=== PATIENT | male | born 1945 ===

== ENCOUNTER 2024-06-06 14:48 | Inpatient (IN) | payer OTHER ==
[~2024-06-06] VITALS: Ht 170.2 cm; Wt 75.2 kg
[~2024-06-06 14:48] MED LIST: ACET650S24 PR; ALLO-97 PO; AMLO-258 PO; ASPI-1450 PO; ATOR40TA28 PO; CALC0.253 PO; CARV25 PO; CLON0.1T2 PO; DOCU-385 PO; FLUO-342 PO; FOLI0.8T21 PO; FURO80TA4 PO; GENT30CR TP; HEPA500018 SQ; INSLAN SQ; INSU100V SQ; LEVE500T8 PO; LOSA-381 PO; LOSA-382 PO; NPH,100V SQ; OMEP20 PO; ONDA-104 PO; SENN-376 PO; SEVE0.8P7 PO; [UNRECOGNIZED DRUG - CODE] TP
[2024-06-06] MEDS ORDERED: 0.9% SODIUM CHLORIDE 10 ML SYRINGE IVP PRN (15:00)
[2024-06-06] MEDS: CefTRIAXone 1 GM/DEXTROSE 50 ML IV ONE (15:15)
[2024-06-06] MEDS: SODIUM CHLORIDE 0.9% 2,250 ML IV ONE (15:15)
[2024-06-06 15:17] LABS: BASOPHILS % (AUTO) 0.2 % (0.0-2.0); EOSINOPHILS % (AUTO) 0.3 % (1.0-6.0); HEMATOCRIT 34.5 % (41-53); HEMOGLOBIN 11.1 g/dL (13.5-17.5); LYMPHOCYTES # (AUTO) 2.2 K/uL (1.0-4.8); LYMPHOCYTES % (AUTO) 9.9 % (22.0-44.0); MEAN CORPUSCULAR HEMOGLOBIN 34.7 pg (26.0-34.0); MEAN CORPUSCULAR HGB CONC 32.3 G/dL (31.0-37.0); MEAN CORPUSCULAR VOLUME 108 fL (80-100); MONOCYTES # (AUTO) 1.6 K/uL (0.1-1.0); MONOCYTES % (AUTO) 7.3 % (2.0-9.0); NEUTROPHILS % (AUTO) 82.3 % (40.0-70.0); PLATELET COUNT (AUTO) 355 K/uL (150-450); RED BLOOD CELL COUNT(AUTO) 3.21 MIL/uL (4.50-5.90); RED CELL DISTRIBUTION WIDTH 16.7 % (11.5-14.5); WHITE BLOOD COUNT (AUTO) 21.9 K/uL (4.5-11.0)
[2024-06-06 15:32] LABS: RBC MORPHOLOGY COMMENT ABNORMAL RBC MORPH
[2024-06-06 15:37] LABS: TROPONIN I-HIGH SENSITIVITY 94 ng/L (<76)
[2024-06-06 15:38] LABS: B-TYPE NATRIURETIC PEPTIDE 277 pg/mL (0-100); LACTIC ACID 3.9 mmol/L (0.4-2.0)
[2024-06-06 15:47] LABS: PROTHROMBIN TIME 10.4 SEC (9.4-11.6)
[2024-06-06 16:25] LABS: ANION GAP 11 mmol/L (8-16); CALCIUM, TOTAL 8.9 mg/dL (8.8-10.5); CARBON DIOXIDE 28 mmol/L (22-29); CHLORIDE 95 mmol/L (98-107); CREATININE 5.38 mg/dL (0.60-1.30); GLOMERULAR FILTR. RATE CALC 10 mL/min (>60); GLUCOSE,RANDOM 182 mg/dL (70-110); POTASSIUM 3.4 mmol/L (3.5-5.1); SODIUM SERUM 134 mmol/L (136-145); UREA NITROGEN, BLOOD 21 mg/dL (7-18)
[2024-06-06 16:29] LABS: ALANINE AMINOTRANSFERASE 7 U/L (12-78); ALBUMIN 1.5 g/dL (3.4-5.0); ALKALINE PHOSPHATASE 210 U/L (46-116); ASPARTATE AMINOTRANSFERASE 18 U/L (15-37); BILIRUBIN,TOTAL 0.6 mg/dL (0.1-1.0); TOTAL PROTEIN, SERUM 5.5 g/dL (6.4-8.2)
[2024-06-06 18:52] LABS: COVID AG,FIA SOURCE NASAL SWAB
[2024-06-06 19:13] LABS: SARS-COV2 (COVID) ANTIGEN,FIA Negative (Negative)
[2024-06-06 19:14] LABS: SPECIMENTYPE,BODY FLUID ASCITES
[2024-06-06] MEDS ORDERED: ACETAMINOPHEN 500 MG TABLET PO ONE (19:30)
[2024-06-06 19:34] LABS: APPEARANCE,URINE TURBID (CLEAR); BILIRUBIN,URINE NEGATIVE (NEGATIVE); COLOR,URINE YELLOW (YELLOW); GLUCOSE, URINE (UA) 300-500 mg/dL (NEGATIVE); KETONES,URINE NEGATIVE (NEGATIVE); LEUKOCYTE ESTERASE ,URINE LARGE (NEGATIVE); NITRATE,URINE NEGATIVE (NEGATIVE); OCCULT BLOOD,URINE LARGE (NEGATIVE); PROTEIN,URINE 300-600,SEE CONFIRM mg/dL (NEGATIVE); SPECIFIC GRAVITIY, URINE 1.045 (1.003-1.030); UROBILINOGEN,URINE <=1.0 mg/dL (<=1.0)
[2024-06-06] MEDS: ACETAMINOPHEN 650 MG RECTAL SUPPOSITORY PR ONE (19:54)
[2024-06-06 19:55] LABS: SULFOSALICYLIC ACID,URINE 1+ (Negative)
[2024-06-06] MEDS: IMIPENEM/CILASTATIN SODIUM 1,000 MG in SODIUM CHLORIDE 0.9% 250 ML IV ONE (19:55)
[2024-06-06 19:59] LABS: BACTERIA,URINE Moderate /HPF (None Seen); RBC,URINE 26-50 /HPF (0-2); SQUAMOUS EPITHELIAL CELL,UR Few /LPF (None Seen)
[2024-06-06 20:12] LABS: TROPONIN I-HIGH SENSITIVITY 101 ng/L (<76)
[2024-06-06] MEDS ORDERED: HYDROCODONE/ACETAMINOPHEN 5-325 MG TABLET PO PRN (21:00)
[2024-06-06] MEDS ORDERED: ACETAMINOPHEN 325 MG TABLET PO PRN (21:00)
[2024-06-06] MEDS ORDERED: MORPHINE SULFATE 2 MG/ML SYRINGE IVP PRN (21:00)
[2024-06-06] MEDS ORDERED: ZOLPIDEM TARTRATE 5 MG TABLET PO PRN (21:00)
[2024-06-06] MEDS: DOCUSATE SODIUM 100 MG CAPSULE PO SCH (21:00)
[2024-06-06] MEDS ORDERED: BISACODYL 10 MG RECTAL RECTAL SUPPOSITORY PR PRN (21:00)
[2024-06-06] MEDS ORDERED: MAGNESIUM HYDROXIDE SUSPENSION 30 ML UDCUP PO PRN (21:00)
[2024-06-06 21:35] LABS: APPEARANCE,SPUN,BODY FLUID CLEAR (CLEAR); APPEARANCE,UNSPUN,BODY FLUID SLIGHTLY CLOUDY (CLEAR); COLOR,BODY FLUID COLORLESS (LT YELLOW); TOTAL VOLUME,BODY FLUID 80 mL
[2024-06-06 22:05] LABS: LYMPHOCYTES,BODY FLUID 44 %; MONOCYTES,BODY FLUID 22 %; NEUTROPHILS,BODY FLUID 34 %; WBC, BODY FLUID 3 /cu. mm.
[2024-06-06] MEDS: VANCOMYCIN 1.25 GM/WATER(PEG) 250 ML IV ONE (22:52)
[2024-06-06] MEDS: HEPARIN SODIUM,PORCINE 5,000 UNITS/ML VIAL SQ SCH (23:49)
[2024-06-07] VITALS (7 sets, daily range): BP systolic 112–145; BP diastolic 68–81; PULSE 89–105; RESP 18; TEMP 98.1–99; O2SAT 94–98
[2024-06-07] MEDS ORDERED: VANCOMYCIN 1GM/WATER(PEG/NADA) 200 ML IV PRN (04:00)
[2024-06-07 06:14] LABS: BASOPHILS % (AUTO) 0.1 % (0.0-2.0); EOSINOPHILS % (AUTO) 0.2 % (1.0-6.0); HEMATOCRIT 34.3 % (41-53); HEMOGLOBIN 11.1 g/dL (13.5-17.5); LYMPHOCYTES # (AUTO) 1.8 K/uL (1.0-4.8); LYMPHOCYTES % (AUTO) 7.9 % (22.0-44.0); MEAN CORPUSCULAR HGB CONC 32.4 G/dL (31.0-37.0); MEAN CORPUSCULAR VOLUME 108 fL (80-100); MONOCYTES # (AUTO) 2.2 K/uL (0.1-1.0); MONOCYTES % (AUTO) 9.7 % (2.0-9.0); NEUTROPHILS # (AUTO) 18.7 K/uL (1.8-7.7); NEUTROPHILS % (AUTO) 82.1 % (40.0-70.0); PLATELET COUNT (AUTO) 351 K/uL (150-450); RED BLOOD CELL COUNT(AUTO) 3.18 MIL/uL (4.50-5.90); RED CELL DISTRIBUTION WIDTH 17.1 % (11.5-14.5); WHITE BLOOD COUNT (AUTO) 22.8 K/uL (4.5-11.0)
[2024-06-07 06:25] LABS: CALCIUM, TOTAL 8.7 mg/dL (8.8-10.5); CREATININE 5.14 mg/dL (0.60-1.30); POTASSIUM 3.1 mmol/L (3.5-5.1)
[2024-06-07] MEDS: PANTOPRAZOLE SODIUM 40 MG DR TABLET PO SCH (08:40)
[2024-06-07] MEDS: POTASSIUM CHL 10 MEQ/WATER 50 ML IV ONE ×2 (09:11→21:25)
[2024-06-07 12:52] LABS: C.DIFF GDH ANTIGEN, Stool Positive (Negative)
[2024-06-07 12:53] LABS: C.DIFF TOXINS A&B, Stool Positive (Negative)
[2024-06-07] MEDS: MetroNIDAZOLE 500 MG/NACL 100 ML IV SCH (14:34)
[2024-06-07 18:08] LABS: CALCIUM, TOTAL 8.9 mg/dL (8.8-10.5); CREATININE 5.74 mg/dL (0.60-1.30); MAGNESIUM 1.5 mg/dL (1.80-2.40); PHOSPHORUS 2.8 mg/dL (2.5-4.9); POTASSIUM 3.1 mmol/L (3.5-5.1)
[2024-06-07] MEDS: VANCOMYCIN HCL 125 MG/2.5 ML SOLUTION ORAL.SYG PO SCH (21:00)
[2024-06-07] MEDS: CARVEDILOL 3.125 MG TABLET PO SCH (21:00)
[2024-06-07] MEDS ORDERED: SODIUM CHLORIDE 0.9% 500 ML IV ONE ×2 (21:19→22:51)
[2024-06-07] MEDS: POTASSIUM CHL 10 MEQ/WATER 50 ML IV SCH (21:31)
[2024-06-08] MEDS: ONDANSETRON HCL 4 MG/2 ML VIAL IVP PRN (02:31)
[2024-06-08 03:50] VITALS: BP 103/61; PULSE 90; RESP 18; TEMP 98.4; O2SAT 98
[2024-06-08] MEDS ORDERED: SODIUM CL IRRIG SOLN BOTTLE 250 ML IRRIG ONE (04:13)
[2024-06-08 06:12] LABS: BASOPHILS % (AUTO) 0.1 % (0.0-2.0); EOSINOPHILS % (AUTO) 0.2 % (1.0-6.0); HEMATOCRIT 32.2 % (41-53); HEMOGLOBIN 10.5 g/dL (13.5-17.5); LYMPHOCYTES # (AUTO) 1.9 K/uL (1.0-4.8); LYMPHOCYTES % (AUTO) 10.5 % (22.0-44.0); MEAN CORPUSCULAR HEMOGLOBIN 35.5 pg (26.0-34.0); MEAN CORPUSCULAR HGB CONC 32.7 G/dL (31.0-37.0); MEAN CORPUSCULAR VOLUME 109 fL (80-100); MONOCYTES # (AUTO) 1.3 K/uL (0.1-1.0); MONOCYTES % (AUTO) 7.5 % (2.0-9.0); NEUTROPHILS # (AUTO) 14.5 K/uL (1.8-7.7); NEUTROPHILS % (AUTO) 81.7 % (40.0-70.0); PLATELET COUNT (AUTO) 372 K/uL (150-450); RED BLOOD CELL COUNT(AUTO) 2.96 MIL/uL (4.50-5.90); RED CELL DISTRIBUTION WIDTH 17.1 % (11.5-14.5); WHITE BLOOD COUNT (AUTO) 17.8 K/uL (4.5-11.0)
[2024-06-08 06:32] LABS: CREATININE 5.62 mg/dL (0.60-1.30); MAGNESIUM 1.5 mg/dL (1.80-2.40); PHOSPHORUS 2.9 mg/dL (2.5-4.9); POTASSIUM 3.8 mmol/L (3.5-5.1)
[2024-06-08] MEDS ORDERED: DEXTROSE 50%-WATER 25 GM/50 ML SYRINGE IVP PRN ×2 (07:15)
[2024-06-08] MEDS ORDERED: INSULIN LISPRO 100 UNITS/ML SQ PRN (07:15)
[2024-06-08 07:16] LABS: TROPONIN I-HIGH SENSITIVITY 66 ng/L (<76)
[2024-06-08] MEDS: INSULIN LISPRO 100 UNITS/ML SQ PRN (07:27)
[2024-06-08 08:51] VITALS: BP 128/83; PULSE 92; RESP 18; TEMP 97.6; O2SAT 97
[2024-06-08] MEDS: ATORVASTATIN CALCIUM 20 MG TABLET PO SCH (09:12)
[2024-06-08] MEDS: MAGNESIUM SULFATE 1 GM in DEXTROSE 5%-WATER 50 ML IV ONE (12:11)
[2024-06-08 12:50] VITALS: PULSE 81; RESP 18
[2024-06-08] MEDS ORDERED: ATOR20TA PO (15:07)
[2024-06-08] MEDS ORDERED: CARV3 PO (15:09)
[2024-06-08] MEDS ORDERED: METR250 PO (15:11)
[2024-06-08] MEDS ORDERED: METR500 IV (15:11)
[2024-06-08] MEDS ORDERED: PANT-31 PO (15:12)
[2024-06-08] MEDS ORDERED: VANC125C12 PO (15:12)
[2024-06-08 15:39] VITALS: BP 118/64; PULSE 77; RESP 18; TEMP 97.7; O2SAT 99
[2024-06-08 18:51] LABS: GLUCOMETER DEV NAME(LOC) 5S.1C; GLUCOSE,POINT OF CARE 106 MG/DL (70-110)
[2024-06-08 20:08] VITALS: BP 110/60; PULSE 81; RESP 19; TEMP 97.5; O2SAT 96
[2024-06-08 20:46] LABS: GLUCOMETER DEV NAME(LOC) 5S.2D; GLUCOSE,POINT OF CARE 260 MG/DL (70-110)
[2024-06-08 22:41] LABS: GLUCOMETER DEV NAME(LOC) 5S.1C; GLUCOSE,POINT OF CARE 138 MG/DL (70-110)
[2024-06-08 23:44] VITALS: BP 137/52; PULSE 73; RESP 18; TEMP 97.6; O2SAT 95
== END 2024-06-09 00:51 | disposition short-term general hospital (02) | DRG 871 ==
LOC: EMS 14:50 → EDH 21:11 → 5S 06-07 16:29
PROVIDERS: ADMIT Internal Medicine; ATTEND Internal Medicine
PROC: 3E1M39Z Irrigation of Peritoneal Cavity using Dialysate, Percutaneous Approach (ICD-10-PCS; principal; 2024-06-07)
DX: A41.9 Sepsis, unspecified organism (principal); G93.41 Metabolic encephalopathy; K65.9 Peritonitis, unspecified; N18.6 End stage renal disease; N39.0 Urinary tract infection, site not specified; I12.0 Hypertensive chronic kidney disease with stage 5 chronic kidney disease or end stage renal disease; A04.72 Enterocolitis due to Clostridium difficile, not specified as recurrent; Z16.24 Resistance to multiple antibiotics; Z20.822 Contact with and (suspected) exposure to COVID-19; R65.20 Severe sepsis without septic shock; Z99.2 Dependence on renal dialysis; D64.9 Anemia, unspecified; D63.1 Anemia in chronic kidney disease; E11.65 Type 2 diabetes mellitus with hyperglycemia; E11.22 Type 2 diabetes mellitus with diabetic chronic kidney disease; E87.6 Hypokalemia; Z79.899 Other long term (current) drug therapy; Z86.73 Personal history of transient ischemic attack (TIA), and cerebral infarction without residual deficits
CPT/HCPCS: 51702; 71045; 74018; 80048; 80053; 81001; 81002; 82962; 83605; 83735; 83880; 84100; 84145; 84484; 85025; 85610; 87040; 87086; 87186; 87324; 87449; 89051; 90945; 92610; 93005; 93306; 97163; 97167; 97535; 99291; G0378; J0696; J0743; J1644; J2405; J3475; J3480; J3490; J7030; J7040; J7050; J7060; 36415-L1; 36415-TC

== ENCOUNTER 2024-08-05 12:38 | Emergency (ER) | payer OTHER ==
[~2024-08-05] VITALS: Ht 162.6 cm; Wt 75.0 kg
[~2024-08-05 12:38] MED LIST changes: +ATOR20TA PO; +CARV3 PO; +METR500 IV; +PANT-31 PO; +VANC125C12 PO
[2024-08-05 12:59] VITALS: TEMP 98.3
[2024-08-05 13:10] LABS: BASOPHILS % (AUTO) 1.1 % (0.0-2.0); EOSINOPHILS % (AUTO) 5.2 % (1.0-6.0); HEMATOCRIT 34.8 % (41-53); HEMOGLOBIN 11.3 g/dL (13.5-17.5); LYMPHOCYTES # (AUTO) 3.2 K/uL (1.0-4.8); LYMPHOCYTES % (AUTO) 31.5 % (22.0-44.0); MEAN CORPUSCULAR HEMOGLOBIN 35.3 pg (26.0-34.0); MEAN CORPUSCULAR HGB CONC 32.5 G/dL (31.0-37.0); MEAN CORPUSCULAR VOLUME 109 fL (80-100); MONOCYTES # (AUTO) 0.8 K/uL (0.1-1.0); MONOCYTES % (AUTO) 8.3 % (2.0-9.0); NEUTROPHILS # (AUTO) 5.4 K/uL (1.8-7.7); NEUTROPHILS % (AUTO) 53.9 % (40.0-70.0); PLATELET COUNT (AUTO) 400 K/uL (150-450); RED BLOOD CELL COUNT(AUTO) 3.21 MIL/uL (4.50-5.90); RED CELL DISTRIBUTION WIDTH 16.9 % (11.5-14.5); WHITE BLOOD COUNT (AUTO) 10.1 K/uL (4.5-11.0)
[2024-08-05 13:19] LABS: ANION GAP 5 mmol/L (8-16); CALCIUM, TOTAL 9.3 mg/dL (8.8-10.5); CARBON DIOXIDE 31 mmol/L (22-29); CHLORIDE 99 mmol/L (98-107); CREATININE 4.29 mg/dL (0.60-1.30); GLOMERULAR FILTR. RATE CALC 13 mL/min (>60); GLUCOSE,RANDOM 208 mg/dL (70-110); POTASSIUM 4.8 mmol/L (3.5-5.1); SODIUM SERUM 134 mmol/L (136-145); UREA NITROGEN, BLOOD 18 mg/dL (7-18)
[2024-08-05 13:28] LABS: TROPONIN I-HIGH SENSITIVITY 65 ng/L (<76)
[2024-08-05 13:45] LABS: PROTHROMBIN TIME 10.7 SEC (9.4-11.6)
[2024-08-05 13:55] LABS: LACTIC ACID 3.2 mmol/L (0.4-2.0)
[2024-08-05] MEDS ORDERED: GENTOS OU (14:09)
[2024-08-05] MEDS ORDERED: LACT10SO10 PO (14:09)
[2024-08-05] MEDS ORDERED: APIX5TAB PO (14:09)
[2024-08-05 14:11] LABS: RBC MORPHOLOGY COMMENT ABNORMAL RBC MORPH
[2024-08-05] MEDS ORDERED: CARV12 PO (14:14)
[2024-08-05] MEDS ORDERED: NPH,100V (14:14)
[2024-08-05] MEDS ORDERED: MAGN400T57 PO (14:14)
[2024-08-05] MEDS ORDERED: MIRT-89 PO (14:14)
[2024-08-05] MEDS ORDERED: LEVE-71 PO (14:14)
[2024-08-05] MEDS ORDERED: CALC0.25 PO (14:14)
[2024-08-05] MEDS ORDERED: IOHEXOL 350 MG/ML 100 ML VIAL ONE (14:30)
[2024-08-05] MEDS: SODIUM CHLORIDE 0.9% 500 ML IV ONE (14:37)
[2024-08-05] MEDS: CEFEPIME HCL 2 GM in DEXTROSE 5%-WATER 50 ML IV ONE (14:37)
[2024-08-05] MEDS: LINEZOLID 600 MG/ISO-OSM 300 ML IV ONE (14:37)
[2024-08-05 15:03] LABS: ALANINE AMINOTRANSFERASE 8 U/L (12-78); ALBUMIN 1.5 g/dL (3.4-5.0); ALKALINE PHOSPHATASE 231 U/L (46-116); ASPARTATE AMINOTRANSFERASE 39 U/L (15-37); BILIRUBIN,TOTAL 0.4 mg/dL (0.1-1.0); TOTAL PROTEIN, SERUM 5.5 g/dL (6.4-8.2)
[2024-08-05 15:15] VITALS: BP 135/84; PULSE 92; RESP 16; O2SAT 96
== END 2024-08-05 16:30 | disposition short-term general hospital (02) ==
LOC: EMS 12:42 → MERGE 12:42 → EMS 16:30
DX: R41.82 Altered mental status, unspecified (principal); R29.810 Facial weakness; I12.0 Hypertensive chronic kidney disease with stage 5 chronic kidney disease or end stage renal disease; N18.6 End stage renal disease; E78.5 Hyperlipidemia, unspecified; Z88.1 Allergy status to other antibiotic agents; Z88.6 Allergy status to analgesic agent; Z88.8 Allergy status to other drugs, medicaments and biological substances; Z79.01 Long term (current) use of anticoagulants; Z79.899 Other long term (current) drug therapy
CPT/HCPCS: 99291; 70450; 96365; 71045; 96366; 80048; 80076; 82140; 83605; 84484; 85025; 85610; 85730; 87040; 74177; 93005; 96368; 36415; Q9967; J0692; J2020; J7060